=== PATIENT | female | born 1980 | race African-American/Black ===

== ENCOUNTER 2020-11-06 12:53 | Inpatient (IN) | payer OTHER ==
[~2020-11-06] VITALS: Ht 167.6 cm; Wt 153.0 kg
[2020-11-06 14:03] LABS: PLATELET COUNT 200 K/uL (152-353)
[2020-11-06 14:25] VITALS: BP 120/73; TEMP 98.5; Ht 167.6 cm; Wt 153.0 kg
[2020-11-06 14:29] LABS: POTASSIUM 4.9 mmol/L (3.6-5.2)
[2020-11-06 16:00] VITALS: BP 95/66; TEMP 97.7
[2020-11-06] MEDS ORDERED: CITALOPRAM20 M1 PO (16:00)
[2020-11-06] MEDS ORDERED: LISITAB PO (16:01)
[2020-11-06] MEDS ORDERED: EUTHYROX50 MCG PO (16:01)
[2020-11-06] MEDS ORDERED: LOVASTATIN10 MG PO (16:02)
[2020-11-06] MEDS ORDERED: DULO30CA PO (16:16)
[2020-11-06 19:25] LABS: POTASSIUM 4.7 mmol/L (3.6-5.2)
[2020-11-06 20:00] VITALS: BP 90/63; TEMP 97.9
[2020-11-06 21:30] VITALS: BP 99/59
[2020-11-06 22:00] VITALS: BP 103/58
[2020-11-06 23:00] VITALS: BP 92/50
[2020-11-06 23:46] LABS: POTASSIUM 3.5 mmol/L (3.6-5.2)
[2020-11-07] VITALS (21 sets, daily range): BP systolic 82–126; BP diastolic 43–81; TEMP 97.3–98.4
[2020-11-07 09:19] LABS: POTASSIUM 4.1 mmol/L (3.6-5.2)
[2020-11-07 14:08] LABS: POTASSIUM 3.9 mmol/L (3.6-5.2)
[2020-11-07 20:56] LABS: POTASSIUM 3.9 mmol/L (3.6-5.2)
[2020-11-08] VITALS (14 sets, daily range): BP systolic 92–116; BP diastolic 44–73; TEMP 97.6–971
[2020-11-08 05:32] LABS: PLATELET COUNT 144 K/uL (152-353)
[2020-11-08 05:51] LABS: POTASSIUM 3.9 mmol/L (3.6-5.2)
[2020-11-09 00:30] VITALS: BP 106/64; TEMP 98.1
[2020-11-09 04:02] VITALS: BP 101/63; TEMP 98.3
[2020-11-09 06:08] LABS: PLATELET COUNT 131 K/uL (152-353)
[2020-11-09 06:22] LABS: POTASSIUM 3.5 mmol/L (3.6-5.2)
[2020-11-09 07:30] VITALS: BP 97/60; TEMP 98.1
[2020-11-09 09:30] VITALS: BP 100/60; TEMP 98
[2020-11-09 16:00] VITALS: BP 104/63; TEMP 97.9
[2020-11-09 20:18] VITALS: BP 127/78; TEMP 97.9
[2020-11-10 00:08] VITALS: BP 118/64; TEMP 98.8
[2020-11-10 04:25] VITALS: BP 117/49; TEMP 99
[2020-11-10 05:41] LABS: PLATELET COUNT 138 K/uL (152-353)
[2020-11-10 06:25] LABS: POTASSIUM 3.9 mmol/L (3.6-5.2)
[2020-11-10 08:00] VITALS: BP 125/86; TEMP 97.8
[2020-11-10 12:00] VITALS: BP 113/77; TEMP 98.2
== END 2020-11-10 14:20 | disposition home or self-care (01) | DRG 638 ==
LOC: ICU 12:53 → MED/SURG 12:53 → ICU 17:20 → MED/SURG 21:05 → ICU 21:05 → MED/SURG 11-09 15:34
PROVIDERS: ADMIT Family Medicine; ATTEND Family Medicine
DX: E11.10 Type 2 diabetes mellitus with ketoacidosis without coma (principal); N39.0 Urinary tract infection, site not specified; Z68.43 Body mass index [BMI] 50.0-59.9, adult; E86.0 Dehydration; R79.89 Other specified abnormal findings of blood chemistry; B96.20 Unspecified Escherichia coli [E. coli] as the cause of diseases classified elsewhere; D64.89 Other specified anemias; N93.8 Other specified abnormal uterine and vaginal bleeding; E66.01 Morbid (severe) obesity due to excess calories; B37.9 Candidiasis, unspecified; K08.89 Other specified disorders of teeth and supporting structures; Z91.11 Patient's noncompliance with dietary regimen; I10 Essential (primary) hypertension; M15.8 Other polyosteoarthritis; E03.8 Other specified hypothyroidism
CPT/HCPCS: 36415; 36600; 80048; 80053; 81000; 81002; 81025; 82805; 82947; 83036; 83540; 83735; 83880; 84100; 84443; 84681; 85027; 87040; 87077; 87086; 87088; 87186; 87635; 93005; J0696; J1650; J1815; J1940; J2550; J3490; U0003